=== PATIENT | female | born 1960 | race Caucasian/White ===

== ENCOUNTER 2016-08-09 10:20 | Emergency (ER) | payer OTHER ==
[~2016-08-09] VITALS: Ht 167.6 cm; Wt 104.5 kg
[2016-08-09 10:24] VITALS: BP 136/72
[2016-08-09] MEDS ORDERED: SIMV20 PO (10:34)
[2016-08-09] MEDS ORDERED: ARIP5TAB9 PO (10:34)
[2016-08-09] MEDS ORDERED: METF500T4 PO (10:34)
[2016-08-09] MEDS ORDERED: BUPR100 PO (10:34)
[2016-08-09 10:36] LABS: GLUCOSE,POINT OF CARE 127 MG/DL (70-110)
[2016-08-09] MEDS ORDERED: ATOR20TA86 PO (11:12)
[2016-08-09] MEDS ORDERED: BUPR150SR PO (11:12)
[2016-08-09 11:14] LABS: ADD UA MICROSCOPIC YES; APPEARANCE,URINE CLOUDY (CLEAR); GLUCOSE, URINE (UA) NEGATIVE (NEGATIVE); KETONES,URINE TRACE mg/dL (NEGATIVE); LEUKOCYTE ESTERASE ,URINE MODERATE (NEGATIVE); OCCULT BLOOD,URINE SMALL (NEGATIVE); PROTEIN,URINE POS 1+ (NEGATIVE)
[2016-08-09] MEDS ORDERED: LIDOCAINE HCL/PF 1% 2 ML VIAL IM ONE (11:15)
[2016-08-09] MEDS ORDERED: CefTRIAXone SODIUM 1 GM/VIAL IM ONE (11:15)
[2016-08-09 11:19] LABS: SQUAMOUS EPITHELIAL CELL,UR Moderate /LPF (None Seen); WBC,URINE 26-50 /HPF (0-5)
[2016-08-09 11:20] LABS: RBC,URINE 0-2 /HPF (0-2)
== END 2016-08-09 12:12 | disposition home or self-care (01) ==
LOC: EMS 10:22
DX: N39.0 Urinary tract infection, site not specified (principal); M79.1 Myalgia; E11.9 Type 2 diabetes mellitus without complications; E78.00 Pure hypercholesterolemia, unspecified; J44.9 Chronic obstructive pulmonary disease, unspecified
CPT/HCPCS: 81001; 82962; 87077; 87086; 96372; 99284; J0696; J3490